=== PATIENT | female | born 1935 | race Two or more races ===

== ENCOUNTER → 2019-04-17 | Outpatient (CLI) | payer MEDICARE | END | disposition home or self-care (01) | LOC: LABWHC1 13:39 | PROVIDERS: ATTEND Ophthalmology | DX: H53.8 Other visual disturbances (principal) | CPT/HCPCS: 36415; 85652; 86140 ==

== ENCOUNTER 2021-01-28 12:09 | Observation (INO) | payer MEDICARE ==
[2021-01-28] MEDS ORDERED: SODIUM CHLORIDE 0.9% 1,000 ML IV ONE (12:30)
--- NOTE | 2021-01-28 12:30 | ED ---
General Adult HPI - General Chief complaint: Dizziness Stated complaint: vertigo Time Seen by Provider: 01/28/21 12:10 Source: patient, EMS, RN notes reviewed, old records reviewed Mode of arrival: ambulatory Limitations: no limitations - History of Present Illness Initial comments: This is a 85-year-old female who presents emergency Department complaining of the room spinning. Patient states she's had vertigo before but today was quite severe. Patient states started suddenly when she sat down the chair. Patient states anytime she tries to move she felt should've follow her so she was unable to ambulate. Patient states she went to [facility] where they admitted her to observation and for 23 hours but because she wasn't getting better they sent her to our facility so she could have a neurologic workup. Patient denies any headache patient denies any visual disturbance per patient denies any numbness weakness. Patient denies any near syncopal episode. Patient denies any chest pain or palpitations. Patient denies any shortness of breath per patient denies abdominal pain patient denies nausea vomiting diarrhea. - Related Data Home Medications Medication Instructions Recorded Confirmed Ascorbic Acid [Vitamin C] 500 mg PO DAILY 07/17/18 10/04/18 Aspirin [Adult Low Dose Aspirin EC] 81 mg PO DAILY 07/17/18 10/04/18 Cholecalciferol (Vitamin D3) 2,000 unit PO DAILY 07/17/18 10/04/18 [Vitamin D3] Fluconazole 200 mg PO SUTH 07/17/18 10/04/18 Furosemide [Lasix] 40 mg PO BID 07/17/18 10/04/18 Glucosamine/Chondr Thompson A Sod [Osteo 1 each PO DAILY 07/17/18 10/04/18 Bi-Flex Caplet] Losartan [Cozaar] 50 mg PO BID 07/17/18 10/04/18 Multivitamins, Thera [Multivitamin 1 tab PO DAILY 07/17/18 10/04/18 (formulary)] Pregabalin [Lyrica] 75 mg PO BID 07/17/18 10/04/18 Ubidecarenone [Co Q-10] 100 mg PO DAILY 07/17/18 10/04/18 Vitamin E Acetate [Vitamin E] 200 unit PO DAILY 07/17/18 10/04/18 glyBURIDE [Diabeta] 2.5 mg PO TID 07/17/18 10/04/18 metFORMIN HCL [Glucophage Xr] 500 mg PO TID 07/17/18 10/04/18 Allergies Allergy/AdvReac Type Severity Reaction Status Date / Time ciprofloxacin [From Cipro] Allergy Swelling Verified 01/28/21 12:23 Penicillins Allergy Anaphylaxis Verified 01/28/21 12:23 Review of Systems ROS Statement: Those systems with pertinent positive or pertinent negative responses have been documented in the HPI. ROS Other: All systems not noted in ROS Statement are negative. Past Medical History Past Medical History: Atrial Fibrillation, Diabetes Mellitus, Deep Vein Thrombosis (DVT), Hypertension, Renal Disease Additional Past Medical History / Comment(s): wound rt thigh area top of leg, wound on rt heel, dvt lt leg-1975, diabetic neuropathy. has cane and walker to use as needed History of Any Multi-Drug Resistant Organisms: None Reported Past Surgical History: Appendectomy, Cholecystectomy, Joint Replacement, Pacemaker Additional Past Surgical History / Comment(s): haseeb cataract surgery, cyst rt arm removed, rt knee replacement 11/15/17 Past Anesthesia/Blood Transfusion Reactions: Motion Sickness Type of Cardiac Device: Permanent Pacemaker Device Placement Date:: 06/10/18 Past Psychological History: No Psychological Hx Reported Smoking Status: Never smoker Past Alcohol Use History: None Reported Past Drug Use History: None Reported - Past Family History Brother(s) Family Medical History: Cancer, Coronary Artery Disease (CAD) Additional Family Medical History / Comment(s): 1-prostate, 1-colon cancer Father Family Medical History: Coronary Artery Disease (CAD) Mother Family Medical History: Coronary Artery Disease (CAD) General Exam - General Exam Comments Initial Comments: GENERAL: Patient is well-developed and well-nourished. Patient is nontoxic and well- hydrated and is in mild distress. ENT: Neck is soft and supple. No significant lymphadenopathy is noted. Oropharynx is clear. Moist mucous membranes. Neck has full range of motion without eliciting any pain. EYES: The sclera were anicteric and conjunctiva were pink and moist. Extraocular movements were intact and pupils were equal round and reactive to light. Eyelids were unremarkable. PULMONARY: Unlabored respirations. Good breath sounds bilaterally. No audible rales rhonchi or wheezing was noted. CARDIOVASCULAR: There is a regular rate and rhythm without any murmurs gallops or rubs. ABDOMEN: Soft and nontender with normal bowel sounds. SKIN: Skin is clear with no lesions or rashes and otherwise unremarkable. NEUROLOGIC: Patient is alert and oriented x3. Cranial nerves II through XII are grossly intact. Motor and sensory are also intact. Normal speech, volume and content. Symmetrical smile. Patient has vertical nystagmus particularly when looking to the left. MUSCULOSKELETAL: Normal extremities with adequate strength and full range of motion. No lower extremity swelling or edema. No calf tenderness. LYMPHATICS: No significant lymphadenopathy is noted PSYCHIATRIC: Normal psychiatric evaluation. Limitations: no limitations Course Vital Signs 01/28/21 12:12 Temperature 98.2 F Pulse Rate 70 Respiratory 18 Rate Blood Pressure 150/74 O2 Sat by Pulse 100 Oximetry Medical Decision Making - Medical Decision Making I spoke with some physicians Dr. Hoffmann accepted the admission. Disposition Clinical Impression: Vertigo, Vertical nystagmus Disposition: ADMITTED IP TO THIS HOSP Referrals: Vipul Saleh MD [Primary Care Provider] - 1-2 days Time of Disposition: 12:29
[2021-01-28] MEDS ORDERED: MECLIZINE 12.5 MG TAB PO PRN (12:34)
[2021-01-28 12:57] LABS: Basophils % (A) 0 %; Eosinophils # (A) 0.4 k/uL (0-0.7); Eosinophils % (A) 6 %; HCT 32.8 % (34.0-46.0); HGB 10.8 gm/dL (11.4-16.0); Lymphocytes # (A) 1.6 k/uL (1.0-4.8); Lymphocytes % (A) 27 %; MCH 31.2 pg (25.0-35.0); MCHC 32.8 g/dL (31.0-37.0); MCV 95.2 fL (80.0-100.0); Mean Platelet Volume 8.3; Monocytes # (A) 0.5 k/uL (0-1.0); Monocytes % (A) 8 %; Neutrophils # (A) 3.6 k/uL (1.3-7.7); Neutrophils % (A) 58 %; Platelet Count 128 k/uL (150-450); RBC 3.45 m/uL (3.80-5.40); RDW 14.4 % (11.5-15.5); WBC 6.1 k/uL (3.8-10.6)
[2021-01-28 13:06] LABS: Albumin 3.4 g/dL (3.5-5.0); Calcium 10.6 mg/dL (8.4-10.2); Potassium 4.7 mmol/L (3.5-5.1); Total Bilirubin 0.2 mg/dL (0.2-1.3); Total Protein 6.1 g/dL (6.3-8.2)
[2021-01-28] MEDS ORDERED: NALOXONE 0.4 MG/ML 1 ML VIAL IV PRN (15:50)
[2021-01-28] MEDS ORDERED: bisacodyL 5 MG TABLET.DR PO PRN (16:11)
[2021-01-28] MEDS ORDERED: MELATONIN 3 MG TABLET PO PRN (16:11)
[2021-01-28] MEDS ORDERED: ONDANSETRON 4 MG/2 ML VIAL IVP PRN (16:11)
--- NOTE | 2021-01-28 16:13 | P.HPIM ---
History of Present Illness H&P Date: 01/28/21 Chief Complaint: dizziness Patient is an 85-year-old female with a past medical history of vertigo diagnosed 1 year ago, carotid stenosis, diabetes mellitus type 2, A. fib, and multiple other comorbid conditions who presented to [facility] secondary to dizziness. Initial vital signs are within normal limits with a blood pressure 146/66. Initial laboratory analysis demonstrated hemoglobin of 9.6, chloride 111, glucose 179, BUN 35 and creatinine 1, BNP 948. Coated testing was negative. Head CT showed no acute process, x-ray showed no acute process. Patient seen and examined at bedside. Yesterday she though she had vertigo, and took an antivert and felt a little bit better, then still felt like the room was spinning. Was unable to stand due to dizziness. Today physician at [place] thought they saw nystagamous and transferred her to a hospital with neurology. Dizziness is much better today than yesterday. Was stiting in her chair when dizziness started. No presyncope NO chest/SOB, No speech difficulty, no change in streght, no numbness or tingling + runny nose for the last 2 weeks Pertinent positives and negatives as discussed in HPI, a complete review of systems was performed and all other systems are negative. General: non toxic, no distress, appears at stated age Derm: warm, dry, dressing in place over bilateral thighs Head: atraumatic, normocephalic, symmetric Eyes: EOMI, no lid lag, anicteric sclera, pupils equal round reactive to light ENT: Nose and ears atraumatic, no thrush, no pharyngeal erythema Neck: No thyromegaly, no cervical lymphadenopathy, trachea midline, supple Mouth: no lip lesion, mucus membranes moist Cardiovascular: S1S2 irreg, no murmur, positive posterior tibial pulse bilateral, 2+ edema, capillary refill less than 2 seconds Lungs: clear to ascultation bilateral, no ronchi, no rales, no wheeze, no acce ssory muscle use Abdominal: soft, nontender to palpation, no guarding, no appreciable organomegaly, normal bowel sounds Ext: no gross muscle atrophy, muscle strength muscle strength 3-5 out of 5 in all 4 extremities, no contractures Neuro: CN II-XI grossly intact, light touch intact all 4 extremities, finger to nose within normal limits, + Marli hallpike Psych: Alert, oriented, appropriate affect Dizziness -Positive Marli-Hallpike on the left -Unable to have MRI secondary to pacemaker -Await neurology recommendations -Check echocardiogram, carotid Dopplers -PT/OT evaluation -Telemetry -Check orthostatic vitals Cardiac murmur -Unknown to patient -Check echocardiogram Bilateral thigh wounds -Consult wound. Diabetes mellitus type 2 - hold oral medications - SSI Atrial fibrillation -Anticoagulated with Eliquis -Telemetry -Resume Coreg Debility -walker, fall precautions The patient is placed in observation with an anticipated less than 2 midnight stay for evaluation of dizziness. CODE STATUS:DNR DVT prophylaxis: Eliquis Discussed with: patient, nursing Anticipated discharge date: in AM Anticipated discharge place: home A total of 65 minutes was spent on the care of this complex patient more than 50% of the time was spent in counseling and care coordination. Past Medical History Past Medical History: Atrial Fibrillation, Diabetes Mellitus, Deep Vein Thrombosis (DVT), Renal Disease Additional Past Medical History / Comment(s): wound rt thigh area top of leg, wound on rt heel, dvt lt leg-1975, diabetic neuropathy History of Any Multi-Drug Resistant Organisms: None Reported Past Surgical History: Appendectomy, Cholecystectomy, Joint Replacement, Pacemaker Additional Past Surgical History / Comment(s): haseeb cataract surgery, cyst rt arm removed, rt knee replacement 11/15/17 Past Anesthesia/Blood Transfusion Reactions: Motion Sickness Type of Cardiac Device: Permanent Pacemaker Device Placement Date:: 06/10/18 Past Psychological History: No Psychological Hx Reported Smoking Status: Never smoker Past Alcohol Use History: None Reported Past Drug Use History: None Reported Additional History: walker - Past Family History Brother(s) Family Medical History: Cancer, Coronary Artery Disease (CAD) Additional Family Medical History / Comment(s): 1-prostate, 1-colon cancer Father Family Medical History: Coronary Artery Disease (CAD) Mother Family Medical History: Coronary Artery Disease (CAD) Medications and Allergies Home Medications Medication Instructions Recorded Confirmed Type Ascorbic Acid [Vitamin C] 500 mg PO DAILY 07/17/18 01/28/21 History Glucosamine/Chondr Thompson A Sod [Osteo 1 tab PO DAILY 07/17/18 01/28/21 History Bi-Flex Caplet] Ubidecarenone [Co Q-10] 100 mg PO DAILY 07/17/18 01/28/21 History Vitamin E Acetate [Vitamin E] 200 unit PO DAILY 07/17/18 01/28/21 History Allopurinol [Zyloprim] 100 mg PO BID 01/28/21 01/28/21 History Apixaban [Eliquis] 2.5 mg PO BID 01/28/21 01/28/21 History Bumetanide [Bumex] 1 mg PO DAILY 01/28/21 01/28/21 History Levothyroxine Sodium [Synthroid] 112 mcg PO DAILY 01/28/21 01/28/21 History Losartan Potassium [Cozaar] 25 mg PO DAILY 01/28/21 01/28/21 History Magnesium Oxide [Magox 400] 400 mg PO DAILY 01/28/21 01/28/21 History Nystatin 100,000 Unit/gm Oint 1 applic TOPICAL BID 01/28/21 01/28/21 History [Mycostatin Oint] carvediloL [Carvedilol] 12.5 mg PO BID 01/28/21 01/28/21 History glipiZIDE [Glucotrol] 5 mg PO AC-BRKFST 01/28/21 01/28/21 History Allergies Allergy/AdvReac Type Severity Reaction Status Date / Time ciprofloxacin [From Cipro] Allergy Swelling Verified 01/28/21 13:15 Penicillins Allergy Anaphylaxis Verified 01/28/21 13:15 Iodine and Iodide Containing AdvReac kidney Verified 01/28/21 13:15 Produc issues Physical Exam Osteopathic Statement: *. No significant issues noted on an osteopathic structural exam other than those noted in the History and Physical/Consult. Vitals: Vital Signs Temp Pulse Resp BP Pulse Ox 01/28/21 15:33 70 18 131/48 99 01/28/21 14:00 70 18 145/64 99 01/28/21 13:45 70 18 145/64 98 01/28/21 13:00 70 18 143/61 100 01/28/21 12:12 98.2 F 70 18 150/74 100 Intake and Output 01/28/21 01/28/21 01/28/21 06:59 14:59 22:59 Other: Weight 83.915 kg Results CBC & Chem 7: 01/28/21 12:30 01/28/21 12:30 Labs: Abnormal Lab Results - Last 24 Hours (Table) 01/28/21 01/28/21 Range/Units 12:30 12:30 RBC 3.45 L (3.80-5.40) m/uL Hgb 10.8 L (11.4-16.0) gm/dL Hct 32.8 L (34.0-46.0) % Plt Count 128 L (150-450) k/uL Chloride 112 H (98-107) mmol/L BUN 30 H (7-17) mg/dL Glucose 131 H (74-99) mg/dL Calcium 10.6 H (8.4-10.2) mg/dL Total Protein 6.1 L (6.3-8.2) g/dL Albumin 3.4 L (3.5-5.0) g/dL
--- NOTE | 2021-01-28 16:36 | P.CNNES ---
History of Present Illness Consult date: 01/28/21 Requesting physician: Gerardo Dyson Chief complaint: Vertigo, nystagmus History of Present Illness: Patient is a 85-year-old female came to the hospital today at 12:09 PM by ambulance for evaluation of vertigo. Patient states that she had one episode of vertigo previously in April 2020 that lasted for about 20 hours and then went away. She never had any issues until yesterday morning at around 7 AM, when she was sitting in the chair, ready to watch good morning [place], very comfortable. She tried to get up to fix the breakfast, when all of a sudden everything started spinning around. She could not even stand. She had one of her friend came over, gave her meclizine from the cabinet which he took did not help. Her friend called the ambulance and it took 2 men to pick her up and hold onto the stretcher. Her eyes kept on spinning. She couldn't make a step. She was taken to [facility]. Her blood test performed at [facility] shows negative influenza screen, negative SARS-Cov-2 PCR. UA is negative. CBC is normal with WBC 5.53, hemoglobin 9.6, platelets 115. PT/PTT normal. Lipase normal. Magnesium 1.6. Electrolytes normal, BUN 35, creatinine 1 which is normal. Calcium 10.2 borderline. Hepatic panel normal. CPK 27 troponin negative. Patient was given meclizine, Reglan 10 mg IV Tylenol. EKG shows ventricular paced complexes. Computed tomography scan of head is normal. Shows some atrophy. Paranasal sinuses and external auditory canals clear. Chest x-ray showed no active cardiopulmonary disease, normal heart. Apparently Abdulaziz maneuver was attempted in [facility], which did not help. Patient was therefore transferred to [facility] today for n eurological evaluation. Patient has not seen an ENT specialist. Patient states that the symptoms lasted all day yesterday. Today it is improved, but not totally cleared. At present the room is not spinning, but her eyes not functioning right. Patient has history of type 2 diabetes for last 40 years, right total knee replacement, atrial fibrillation, hypertension, hyperlipidemia, CHF, vertigo. Patient also has a pacemaker. Patient has history of peripheral neuropathy in the feet for last 35 years. She has history of atrial fibrillation on 07/23/2019 for which she is on anticoagulation. Patient states that she received the second shot of the ansari virus vaccination in the right shoulder in August 2020 and after that she developed weakness of the right shoulder. Review of Systems Patient denies any slurred speech, facial droop, slurred speech. She denies any focal numbness tingling or weakness. No chest pain, abdominal pain nausea vomiting diarrhea. Patient does complain of some double vision. No fever or chills. No rash. She has arthritis. No anxiety depression. Past Medical History Past Medical History: Atrial Fibrillation, Diabetes Mellitus, Deep Vein Thrombosis (DVT), Hypertension, Renal Disease Additional Past Medical History / Comment(s): wound rt thigh area top of leg, wound on rt heel, dvt lt leg-1974, diabetic neuropathy. has cane and walker to use as needed History of Any Multi-Drug Resistant Organisms: None Reported Past Surgical History: Appendectomy, Cholecystectomy, Joint Replacement, Pacemaker Additional Past Surgical History / Comment(s): haseeb cataract surgery, cyst rt arm removed, rt knee replacement 11/15/17 Past Anesthesia/Blood Transfusion Reactions: Motion Sickness Type of Cardiac Device: Permanent Pacemaker Device Placement Date:: 06/10/18 Past Psychological History: No Psychological Hx Reported Smoking Status: Never smoker Past Alcohol Use History: None Reported Past Drug Use History: None Reported - Past Family History Brother(s) Family Medical History: Cancer, Coronary Artery Disease (CAD) Additional Family Medical History / Comment(s): 1-prostate, 1-colon cancer Father Family Medical History: Coronary Artery Disease (CAD) Mother Family Medical History: Coronary Artery Disease (CAD) Medications and Allergies Home Medications Medication Instructions Recorded Confirmed Type Ascorbic Acid [Vitamin C] 500 mg PO DAILY 07/17/18 01/28/21 History Glucosamine/Chondr Thompson A Sod [Osteo 1 tab PO DAILY 07/17/18 01/28/21 History Bi-Flex Caplet] Ubidecarenone [Co Q-10] 100 mg PO DAILY 07/17/18 01/28/21 History Vitamin E Acetate [Vitamin E] 200 unit PO DAILY 07/17/18 01/28/21 History Allopurinol [Zyloprim] 100 mg PO BID 01/28/21 01/28/21 History Apixaban [Eliquis] 2.5 mg PO BID 01/28/21 01/28/21 History Bumetanide [Bumex] 1 mg PO DAILY 01/28/21 01/28/21 History Levothyroxine Sodium [Synthroid] 112 mcg PO DAILY 01/28/21 01/28/21 History Losartan Potassium [Cozaar] 25 mg PO DAILY 01/28/21 01/28/21 History Magnesium Oxide [Magox 400] 400 mg PO DAILY 01/28/21 01/28/21 History Nystatin 100,000 Unit/gm Oint 1 applic TOPICAL BID 01/28/21 01/28/21 History [Mycostatin Oint] carvediloL [Carvedilol] 12.5 mg PO BID 01/28/21 01/28/21 History glipiZIDE [Glucotrol] 5 mg PO AC-BRKFST 01/28/21 01/28/21 History Allergies Allergy/AdvReac Type Severity Reaction Status Date / Time ciprofloxacin [From Cipro] Allergy Swelling Verified 01/28/21 13:15 Penicillins Allergy Anaphylaxis Verified 01/28/21 13:15 Iodine and Iodide Containing AdvReac kidney Verified 01/28/21 13:15 Produc issues Physical Examination - Vital Signs Vital Signs: Vital Signs Temp Pulse Resp BP Pulse Ox 01/28/21 14:00 70 18 145/64 99 01/28/21 13:45 70 18 145/64 98 01/28/21 13:00 70 18 143/61 100 01/28/21 12:12 98.2 F 70 18 150/74 100 Intake and Output 01/27/21 01/28/21 01/28/21 22:59 06:59 14:59 Other: Weight 83.915 kg Patient is an elderly female, very pleasant, in no acute distress. Patient is alert awake oriented to time, place and person. Speech and language functions are normal. No aphasia or dysarthria. Attention, concentration and fund of knowledge is adequate. On cranial nerve examination, pupils are equal, round 3 mm and reacting to light to 2 mm, visual eckert are full on confrontation, extraocular muscles are intact, although appears to have diplopia looking to the right, questionable mild left DOE. Patient has very significant downbeat nystagmus looking at end gaze bilaterally, right worse than left and also slightly in the primary gaze. Face is symmetric, tongue protrudes to the midline. Palatal elevation and sensation normal, hearing is slightly decreased and shoulder shrug normal, facial sensation normal. Otologic examination revealed moderate amount of wax in the right ear. On muscle strength testing, patient has bilateral deltoid weakness (right/left), deltoid 2/3, biceps 4+/5 triceps and systems protection technician are normal. In the lower extremities hip flexion 2-3/2-3, ankles are normal. Deep tendon reflexes are symmetric, trace in the upper limbs, 0 at the right knee, 1+ left. Ankles are 0 and plantars downgoing. Sensory to touch is equal with no neglect. Cerebellar function showed no ataxia for [id number] testing. No dysdiadochokinesia. Tone and bulk of muscles normal. Gait not checked. On general examination, there is no carotid bruit or murmur, S1-S2 audible. Abdomen is soft nontender. Chest is clear. Peripheral pulses are present. Mild peripheral edema. Results - Laboratory Findings CBC and BMP: 01/28/21 12:30 01/28/21 12:30 Abnormal Lab Findings: Abnormal Labs 01/28/21 01/28/21 12:30 12:30 RBC 3.45 L Hgb 10.8 L Hct 32.8 L Plt Count 128 L Chloride 112 H BUN 30 H Glucose 131 H Calcium 10.6 H Total Protein 6.1 L Albumin 3.4 L Assessment and Plan Assessment: * Vertigo with nystagmus. Rule out central versus peripheral cause. Rule out vestibular neuronitis/labyrinthitis. TIA/CVA appears less likely with lack of any other focal symptoms although still in the differential. * Atrial fibrillation, on long-term anticoagulation. * Pacemaker * Diabetes, well controlled * Hypertension * Obesity Plan: * Patient will undergo carotid Doppler rule out stenosis. * We will check B12, folate. * Suggest ENT consultation to evaluate for vertigo and vertical nystagmus. Rule out central versus peripheral cause. Patient may need electronystagmogram/VNG. * Continue Eliquis 2.5 mg twice a day. * 2-D echo. * Patient cannot have MRI due to presence of pacemaker. * We will follow.
--- NOTE | 2021-01-28 16:50 | US ---
EXAMINATION TYPE: US carotid duplex BILAT DATE OF EXAM: 01/28/2021 COMPARISON: NONE CLINICAL HISTORY: Vertigo. vertigo EXAM MEASUREMENTS: RIGHT: Peak Systolic Velocity (PSV) cm/sec ----- Right CCA: 75.7 ----- Right ICA: 97.7 ----- Right ECA: 66.2 ICA/CCA ratio: 1.3 RIGHT: End Diastole cm/sec ----- Right CCA: 10.9 ----- Right ICA: 25.2 ----- Right ECA: 0.0 LEFT: Peak Systolic Velocity (PSV) cm/sec ----- Left CCA: 69.1 ----- Left ICA: 88.9 ----- Left ECA: 55.7 ICA/CCA ratio: 1.3 LEFT: End Diastole cm/sec ----- Left CCA: 9.8 ----- Left ICA: 24.1 ----- Left ECA: 0.0 VERTEBRALS (direction of flow): Right Vertebral: Antegrade Left Vertebral: Antegrade Rhythm: Normal Mild to moderate plaque bilateral bifurcations. no evidence of increased velocities. IMPRESSION: There is antegrade flow in the vertebral arteries. The images and measurements suggest 50% stenosis i n both internal carotid arteries. NASCET criteria was used in interpretation of this exam? Criteria for Assigning % of Stenosis / Diameter reduction (Estimation based on the indirect measurements of the internal carotid artery velocities (ICA PSV). 1. Normal (no stenosis)=ICA PSV < 125 cm/s: ratio < 2.0: ICA EDV<40 cm/s. 2. Less than 50% stenosis=ICA PSV < 125 cm/s: ratio < 2.0: ICA EDV<40 cm/s. 3. 50 to 69% stenosis=ICA PSV of 125 to 230 cm/s: ration 2.0 ? 4.0: ICA EDV 40-100 cm/s. 4. Greater than 70% stenosis to near occlusion= ICA PSV > 230 cm/s: ratio > 4.0: ICA EDV > 100 cm/s. 5. Near occlusion= ICA PSV velocities may be low or undetectable: variable ratio and ICA EDV. 6. Total occlusion=unable to detect flow.
[2021-01-28 17:30] LABS: Glucose,Whole Blood 212 mg/dL (75-99)
[2021-01-28] MEDS: carvediloL 12.5 MG TAB PO SCH (17:33)
[2021-01-28] MEDS: INSULIN ASPART (NovoLOG) 100 UNIT/ML VIAL SQ SCH ×2 (17:33→21:45)
[2021-01-28 20:42] LABS: Glucose,Whole Blood 225 mg/dL (75-99)
[2021-01-28] MEDS: APIXABAN 2.5 MG TABLET PO SCH (21:45)
[2021-01-28] MEDS: allopurinoL 100 MG TAB PO SCH (21:45)
[2021-01-28] MEDS: ACETAMINOPHEN TAB 325 MG TAB PO PRN (23:50)
[2021-01-29 01:55] VITALS: PULSE 70
[2021-01-29] MEDS: LEVOTHYROXINE 112 MCG TAB PO SCH (05:36)
[2021-01-29 07:17] LABS: Glucose,Whole Blood 140 mg/dL (75-99)
[2021-01-29] MEDS ORDERED: NON FORMULARY DRUG (Glucosamine/Chondr Su A Sod [Osteo Bi-Flex Caplet] 1 EACH Tablet) PO SCH (09:00)
[2021-01-29 09:10] LABS: HGB 9.2 g/dL (12.0-15.0); MCH 30.8 pg (27.0-32.0); MCHC 31.7 g/dL (32.0-37.0); Mean Platelet Volume 10.9 fL (9.5-12.2); Platelet Count 125 X 10*3/uL (140-440); RBC 2.99 X 10*6/uL (4.10-5.20); RDW 14.5 % (11.5-14.5); WBC 5.75 X 10*3/uL (4.50-10.00)
[2021-01-29] MEDS: MAGNESIUM OXIDE 400 MG TAB PO SCH (09:16)
[2021-01-29] MEDS: LOSARTAN 25 MG TAB PO SCH (09:16)
[2021-01-29] MEDS: allopurinoL 100 MG TAB PO SCH ×2 (09:16→20:34)
[2021-01-29] MEDS: INSULIN ASPART (NovoLOG) 100 UNIT/ML VIAL SQ SCH ×4 (09:16→20:32)
[2021-01-29] MEDS: APIXABAN 2.5 MG TABLET PO SCH ×2 (09:16→20:34)
[2021-01-29] MEDS: carvediloL 12.5 MG TAB PO SCH ×2 (09:17→18:01)
[2021-01-29] MEDS: BUMETANIDE 1 MG TAB PO SCH (09:17)
[2021-01-29] MEDS: ASCORBIC ACID 500 MG TAB PO SCH (09:17)
[2021-01-29] MEDS: ACETAMINOPHEN TAB 325 MG TAB PO PRN ×2 (09:30→20:32)
--- NOTE | 2021-01-29 11:01 | ECHOF ---
Referral Reason:murmur MEASUREMENTS -------- HEIGHT: 152.4 cm WEIGHT: 83.9 kg BP: 121/79 RVIDd: 4.2 cm (< 3.3) IVSd: 1.4 cm (0.6 - 1.1) LVIDd: 3.5 cm (3.9 - 5.3) LVPWd: 1.4 cm (0.6 - 1.1) IVSs: 1.7 cm LVIDs: 2.2 cm LVPWs: 1.6 cm LAESV Index (A-L): 52.70 ml/m Ao Diam: 2.9 cm (2.0 - 3.7) AV Cusp: 1.2 cm (1.5 - 2.6) LA Diam: 5.4 cm (2.7 - 3.8) MV E Clifford: 0.94 m/s MV DecT: 72 ms MV A Clifford: 1.05 m/s MV E/A Ratio: 0.90 AV maxP.15 mmHg AV meanP.27 mmHg RAP: 5.00 mmHg RVSP: 28.28 mmHg FINDINGS -------- Sinus rhythm. This was a technically adequate study. The left ventricular size is normal. There is moderate concentric left ventricular hypertrophy. O verall left ventricular systolic function is mildly impaired with, an EF between 45 - 50 %. Septal wall motion is delayed, and consistent with ventricular pacing. The right ventricle is moderately enlarged. LA is severely dilated >40 ml/m2 The right atrial size is normal. Electronic pacemaker lead seen in the right atrial cavity. Interatrial and interventricular septum intact. There is no evidence of aortic regurgitation. There is moderate aortic stenosis present. Peak/nida n gradient across the Aortic Valve is 45.15mmHg / 24.27mmHg. Nqvrbuci-[id number] mitral regurgitation is present. Mild tricuspid regurgitation present. The right ventricular systolic pressure, as measured by Doppl er, is 28.28mmHg. Unable to estimate RVSP due to inadequate TR jet spectral doppler profile. There is no pulmonic regurgitation present. The aortic root size is normal. Normal inferior vena cava with normal inspiratory collapse consistent with estimated right atrial pre ssure of 5 mmHg. There is no pericardial effusion. CONCLUSIONS -------- 1. The left ventricular size is normal. 2. There is moderate concentric left ventricular hypertrophy. 3. Overall left ventricular systolic function is mildly impaired with, an EF between 45 - 50 %. 4. Septal wall motion is delayed, and consistent with ventricular pacing. 5. The right ventricle is moderately enlarged. 6. LA is severely dilated >40 ml/m2 7. There is moderate aortic stenosis present. 8. Peak/mean gradient across the Aortic Valve is 45.15mmHg / 24.27mmHg. 9. Ocwcmtpp-gm-[id number] mitral regurgitation is present. 10. Mild tricuspid regurgitation present. PRODUCT RESPONSIBILITY LIAISON: Annie Gutiérrez RDCS
[2021-01-29 11:34] LABS: Glucose,Whole Blood 149 mg/dL (75-99)
--- NOTE | 2021-01-29 12:03 | P.PN ---
Subjective Progress Note Date: 01/29/21 Patient states she is feeling better. She is not as dizzy. She feels almost back to normal". She has been walking with her walker and fell steady. Patient always uses 4 wheeled walker at home inside and outside. Denies headache. Still has double vision at times. No nausea vomiting. No new focal symptoms. Objective - Vital Signs Vital signs: Vital Signs Temp 97.6 F 01/29/21 07:00 Pulse 70 01/29/21 08:00 Resp 16 01/29/21 08:00 BP 149/80 01/29/21 07:00 Pulse Ox 97 01/29/21 07:00 Intake & Output 01/28/21 01/29/21 01/29/21 18:59 06:59 18:59 Weight 83.915 kg 83.915 kg Other: Voiding Method Bedside Commode Bedside Commode # Voids 2 # Bowel Movements 1 - Exam Patient's mental status, speech and language functions are normal. Pupils are r ound and reactive to light visual eckert are full. Extraocular muscles revealed vertical nystagmus, but much better than yesterday. She was still seeing double in the primary gaze. No ataxia for oxtyrs-pi-tayx testing. Face is symmetric. Tongue protrudes the midline. Muscle strength is normal. - Labs CBC & Chem 7: 01/29/21 04:47 01/29/21 04:47 Labs: Abnormal Lab Results - Last 24 Hours (Table) 01/28/21 01/28/21 01/28/21 Range/Units 12:30 12:30 17:28 RBC 3.45 L (3.80-5.40) m/uL Hgb 10.8 L (11.4-16.0) gm/dL Hct 32.8 L (34.0-46.0) % MCHC (32.0-37.0) g/dL Plt Count 128 L (150-450) k/uL Chloride 112 H (98-107) mmol/L BUN 30 H (7-17) mg/dL Glucose 131 H (74-99) mg/dL POC Glucose (mg/dL) 212 H (75-99) mg/dL Calcium 10.6 H (8.4-10.2) mg/dL Total Protein 6.1 L (6.3-8.2) g/dL Albumin 3.4 L (3.5-5.0) g/dL 01/28/21 01/29/21 01/29/21 Range/Units 20:41 04:47 07:16 RBC 2.99 L (3.80-5.40) m/uL Hgb 9.2 L (11.4-16.0) gm/dL Hct 29.0 L (34.0-46.0) % MCHC 31.7 L (32.0-37.0) g/dL Plt Count 125 L (150-450) k/uL Chloride (98-107) mmol/L BUN (7-17) mg/dL Glucose (74-99) mg/dL POC Glucose (mg/dL) 225 H 140 H (75-99) mg/dL Calcium (8.4-10.2) mg/dL Total Protein (6.3-8.2) g/dL Albumin (3.5-5.0) g/dL 01/29/21 Range/Units 11:34 RBC (3.80-5.40) m/uL Hgb (11.4-16.0) gm/dL Hct (34.0-46.0) % MCHC (32.0-37.0) g/dL Plt Count (150-450) k/uL Chloride (98-107) mmol/L BUN (7-17) mg/dL Glucose (74-99) mg/dL POC Glucose (mg/dL) 149 H (75-99) mg/dL Calcium (8.4-10.2) mg/dL Total Protein (6.3-8.2) g/dL Albumin (3.5-5.0) g/dL Assessment and Plan Assessment: * Vertigo with nystagmus. Some diplopia. Rule out central versus peripheral cause. Rule out vestibular neuronitis/labyrinthitis. TIA/CVA also in the differential due to vertical nystagmus and diplopia. Patient is already on Eliquis. * Atrial fibrillation, on long-term anticoagulation. * Pacemaker * Diabetes, well controlled * Hypertension * Obesity Plan: * Carotid Doppler showed 50% stenosis bilateral ICA. Antegrade flow in both vertebral arteries. We will start Lipitor 10 mg daily. * B12 1781, folate 23.4. Hemoglobin A1c 6.3. * Patient's lipid panel from 10/24/2019 shows cholesterol 164, LDL 97, HDL 42 and triglycerides 122. We will start low-dose Lipitor to bring LDL less than 70. Hemoglobin A1c 6.3 on 10/24/2019. * Suggest ENT consultation to evaluate for vertigo and vertical nystagmus. Rule out central versus peripheral cause. Patient may need electronystagmogram/VNG. * Continue Eliquis 2.5 mg twice a day. * 2-D echo revealed normal left-ventricular size. Moderate concentric LVH. Left ventricular systolic function is mildly impaired with EF between 45-50%. Septal wall motion is delayed and is consistent with ventricular pacing. Left atrium is severely dilated. Moderate aortic stenosis. Moderate to severe MR. Patient follows up with hospital cook. * Patient cannot have MRI due to presence of pacemaker.
--- NOTE | 2021-01-29 12:35 | P.CONS ---
History of Present Illness - Reason for Consult Consult date: 01/29/21 wound care - History of Present Illness 85-year-old patient who is known to the wound care center however she is following up at the [place] wound care center for nonhealing ulceration to the left lower extremity posterior aspect and a new ulcerations to the left axilla. Patient has been utilizing absorptive silver foam to the site. She has been receiving wound care for the last few weeks. The ulceration however seems to be worsening instead of getting better. Patient continues to have significant amount of drainage. Patient continues to sit for prolonged periods time and an causes shearing when transferring. Right lower extremity posterior aspect ulceration measures approximately 8 x 8 x 0.1 cm a significant amount of drainage and slough noted with granulation seen throughout the wound bed wound edges are attached to the wound base no tunneling under not minding noted. The left axilla ulceration measures approximately 2 x 3 x 0.1 cm with slough noted within the wound bed and granulation seen throughout. Patient's past medical history significant for atrial fibrillation, diabetes mellitus, hypertension, diabetic neuropathy. Review Of Systems: Constitutional: No fever, no chills, no night sweats. No weight change. No weakness, fatigue or lethargy. No daytime sleepiness. Integumentary:reports wounds, no lesions. No rash or pruritus. No unusual bruising. No change in hair or nails. Physical exam: General Appearance: Alert, cooperative, no distress, appears stated age. Skin: See HPI all other Skin color, texture, tugor normal, no rashes or lesions. Neurologic: Alert oriented x3 Assessment: 1. Nonhealing ulceration to right lower extremity with fat layer exposure 2. Nonhealing ulceration to left axilla with fat layer exposure 3. Diabetic foot ulcer Plan: 1. Right lower extremity: Apply absorptive silver, saline moistened gauze, and ABD and secure with Tubigrip. Change every other day. 2. Left axilla ulceration apply honey alginate, saline moist gauze, dry gauze, Tegaderm changes every other day. Thank you for the consultation any questions please contact the wound care center DNP note has been reviewed and discussed with Dr. Guillen and the impression and plan of care has been directed as dictated. Past Medical History Past Medical History: Atrial Fibrillation, Diabetes Mellitus, Deep Vein Thrombosis (DVT), Hypertension, Renal Disease Additional Past Medical History / Comment(s): wound rt thigh area top of leg, wound on rt heel, dvt lt leg-1975, diabetic neuropathy History of Any Multi-Drug Resistant Organisms: None Reported Past Surgical History: Appendectomy, Cholecystectomy, Joint Replacement, Pacemaker Additional Past Surgical History / Comment(s): haseeb cataract surgery, cyst rt arm removed, rt knee replacement 11/15/17 Past Anesthesia/Blood Transfusion Reactions: Previous Problems w/ Anesthesia Additional Past Anesthesia/Blood Transfusion Reaction / Comm: Pt states it takes a long time for her to come to after anesthesia. Type of Cardiac Device: Permanent Pacemaker Device Placement Date:: 06/10/18 Past Psychological History: No Psychological Hx Reported Smoking Status: Former smoker Past Alcohol Use History: None Reported Past Drug Use History: None Reported - Past Family History Brother(s) Family Medical History: Cancer, Coronary Artery Disease (CAD) Additional Family Medical History / Comment(s): 1-prostate, 1-colon cancer Father Family Medical History: Coronary Artery Disease (CAD) Mother Family Medical History: Coronary Artery Disease (CAD) Medications and Allergies Home Medications Medication Instructions Recorded Confirmed Type Ascorbic Acid [Vitamin C] 500 mg PO DAILY 07/17/18 01/28/21 History Glucosamine/Chondr Thompson A Sod [Osteo 1 tab PO DAILY 07/17/18 01/28/21 History Bi-Flex Caplet] Ubidecarenone [Co Q-10] 100 mg PO DAILY 07/17/18 01/28/21 History Vitamin E Acetate [Vitamin E] 200 unit PO DAILY 07/17/18 01/28/21 History Allopurinol [Zyloprim] 100 mg PO BID 01/28/21 01/28/21 History Apixaban [Eliquis] 2.5 mg PO BID 01/28/21 01/28/21 History Bumetanide [Bumex] 1 mg PO DAILY 01/28/21 01/28/21 History Levothyroxine Sodium [Synthroid] 112 mcg PO DAILY 01/28/21 01/28/21 History Losartan Potassium [Cozaar] 25 mg PO DAILY 01/28/21 01/28/21 History Magnesium Oxide [Magox 400] 400 mg PO DAILY 01/28/21 01/28/21 History Nystatin 100,000 Unit/gm Oint 1 applic TOPICAL BID 01/28/21 01/28/21 History [Mycostatin Oint] carvediloL [Carvedilol] 12.5 mg PO BID 01/28/21 01/28/21 History glipiZIDE [Glucotrol] 5 mg PO AC-BRKFST 01/28/21 01/28/21 History Allergies Allergy/AdvReac Type Severity Reaction Status Date / Time ciprofloxacin [From Cipro] Allergy Swelling Verified 01/28/21 13:15 Penicillins Allergy Anaphylaxis Verified 01/28/21 13:15 Iodine and Iodide Containing AdvReac kidney Verified 01/28/21 13:15 Produc issues Physical Exam Vitals: Vital Signs Temp Pulse Pulse Resp BP BP Pulse Ox 01/29/21 08:00 70 16 01/29/21 07:00 97.6 F 70 16 149/80 97 01/29/21 01:54 70 17 01/29/21 01:30 97.2 F L 70 17 121/79 97 01/28/21 22:40 71 01/28/21 20:40 98.0 F 71 17 143/81 98 01/28/21 19:55 97.5 F L 70 18 156/63 100 01/28/21 17:29 70 18 139/50 98 01/28/21 15:33 70 18 131/48 99 01/28/21 14:00 70 18 145/64 99 01/28/21 13:45 70 18 145/64 98 01/28/21 13:00 70 18 143/61 100 Intake and Output 01/28/21 01/29/21 01/29/21 22:59 06:59 14:59 Other: Voiding Method Bedside Commode Bedside Commode Bedside Commode # Voids 1 2 # Bowel Movements 1 Weight 83.915 kg Results CBC & Chem 7: 01/29/21 04:47 01/28/21 12:30 Labs: Abnormal Lab Results - Last 24 Hours (Table) 01/28/21 01/28/21 01/28/21 Range/Units 12:30 12:30 17:28 RBC 3.45 L (3.80-5.40) m/uL Hgb 10.8 L (11.4-16.0) gm/dL Hct 32.8 L (34.0-46.0) % MCHC (32.0-37.0) g/dL Plt Count 128 L (150-450) k/uL Chloride 112 H (98-107) mmol/L BUN 30 H (7-17) mg/dL Glucose 131 H (74-99) mg/dL POC Glucose (mg/dL) 212 H (75-99) mg/dL Calcium 10.6 H (8.4-10.2) mg/dL Total Protein 6.1 L (6.3-8.2) g/dL Albumin 3.4 L (3.5-5.0) g/dL 01/28/21 01/29/21 01/29/21 Range/Units 20:41 04:47 07:16 RBC 2.99 L (3.80-5.40) m/uL Hgb 9.2 L (11.4-16.0) gm/dL Hct 29.0 L (34.0-46.0) % MCHC 31.7 L (32.0-37.0) g/dL Plt Count 125 L (150-450) k/uL Chloride (98-107) mmol/L BUN (7-17) mg/dL Glucose (74-99) mg/dL POC Glucose (mg/dL) 225 H 140 H (75-99) mg/dL Calcium (8.4-10.2) mg/dL Total Protein (6.3-8.2) g/dL Albumin (3.5-5.0) g/dL 01/29/21 Range/Units 11:34 RBC (3.80-5.40) m/uL Hgb (11.4-16.0) gm/dL Hct (34.0-46.0) % MCHC (32.0-37.0) g/dL Plt Count (150-450) k/uL Chloride (98-107) mmol/L BUN (7-17) mg/dL Glucose (74-99) mg/dL POC Glucose (mg/dL) 149 H (75-99) mg/dL Calcium (8.4-10.2) mg/dL Total Protein (6.3-8.2) g/dL Albumin (3.5-5.0) g/dL Assessment and Plan (1) Non-pressure chronic ulcer of skin of other sites with fat layer exposed Current Visit: Yes Status: Acute Code(s): L98.492 - NON-PRS CHRONIC ULCER OF SKIN OF SITES W FAT LAYER EXPOSED SNOMED Code(s): 37597141 (2) Diabetes with skin ulcer Current Visit: Yes Status: Acute Code(s): E11.622 - TYPE 2 DIABETES MELLITUS WITH OTHER SKIN ULCER; L98.499 - NON-PRESSURE CHRONIC ULCER OF SKIN OF SITES W UNSP SEVERITY SNOMED Code(s): 09835140 (3) Chronic ulcer of right thigh with fat layer exposed Current Visit: No Status: Acute Code(s): L97.112 - NON-PRS CHRONIC ULCER OF RIGHT THIGH W FAT LAYER EXPOSED SNOMED Code(s): 966600799
--- NOTE | 2021-01-29 16:22 | P.PN ---
Subjective Progress Note Date: 01/29/21 Patient is an 85-year-old female with a past medical history of vertigo diagnosed 1 year ago, carotid stenosis, diabetes mellitus type 2, A. fib, and multiple other comorbid conditions who presented to [facility] secondary to dizziness. Initial vital signs are within normal limits with a blood pressure 146/66. Initial laboratory analysis demonstrated hemoglobin of 9.6, chloride 111, glucose 179, BUN 35 and creatinine 1, BNP 948. COVID testing was negative. Head CT showed no acute process, x-ray showed no acute process. Echo demonistrated ejection fraction 45-50%, moderate aortic stenosis, and moderate to severe mitral regurgitation. Carotid Doppler showed 50% plaquing bilaterally. She went to get up with therapy and her dizziness is better but she was significantly weak and they recommended rehab. She was seen by wound care due to her bilateral thigh wounds they also identified a left axillary wound. Patient seen and examined at bedside. She states that her dizziness is resolved but she is still feeling weak and that physical therapy said she cannot go home. No chest pain, SOB, or nausea. General: non toxic, no distress, appears at stated age Derm: Bilateral thigh wounds with dressing in place, warm, dry Head: atraumatic, normocephalic, symmetric Eyes: EOMI, no lid lag, anicteric sclera Mouth: no lip lesion, mucus membranes moist Cardiovascular: S1S2 regular with systolic ejection murmur, positive posterior tibial pulse bilateral, Lungs: CTA bilateral, no rhonchi, no rales , no accessory muscle use Abdominal: soft, nontender to palpation, no guarding, no appreciable organomegaly Ext: no gross muscle atrophy, no edema, no contractures Neuro: CN II-XI grossly intact, no focal neuro deficits Psych: Alert, oriented, appropriate affect Dizziness -Positive Marli-Hallpike on the left, suspect BPPV -We will need ENT evaluation to rule out in her ear dysfunction -Unable to have MRI secondary to pacemaker -Await neurology cleared for discharge, and statin secondary to carotid disease Carotid stenosis -Aspirin -Statin Moderate aortic stenosis and moderate mitral regurgitation -Outpatient cardiology follow-up Systolic cardiomyopathy, appears normal per patient ejection fraction 45-50% -Outpatient follow-up -Continue with Coreg,, Bumex, and cozaar Bilateral thigh wounds -Wound care recommendations. Diabetes mellitus type 2 - hold oral medications - SSI Atrial fibrillation -Anticoagulated with Eliquis -Telemetry -Resume Coreg Debility -walker, fall precautions The patient is placed in observation with an anticipated less than 2 midnight stay for evaluation of dizziness. CODE STATUS:DNR DVT prophylaxis: Eliquis Discussed with: patient, nursing Anticipated discharge date: in AM Anticipated discharge place: home A total of 65 minutes was spent on the care of this complex patient more than 50% of the time was spent in counseling and care coordination. Objective - Vital Signs Vital signs: Vital Signs Temp 97.3 F L 01/29/21 14:51 Pulse 70 01/29/21 14:51 Resp 18 01/29/21 14:51 BP 105/64 01/29/21 14:51 Pulse Ox 98 01/29/21 14:51 Intake & Output 01/28/21 01/29/21 01/29/21 18:59 06:59 18:59 Weight 83.915 kg 83.915 kg Other: Voiding Method Bedside Commode Bedside Commode # Voids 2 3 # Bowel Movements 1 - Labs CBC & Chem 7: 01/29/21 04:47 01/28/21 12:30 Labs: Abnormal Lab Results - Last 24 Hours (Table) 01/28/21 01/28/21 01/29/21 Range/Units 17:28 20:41 04:47 RBC 2.99 L (4.10-5.20) X 10*6/uL Hgb 9.2 L (12.0-15.0) g/dL Hct 29.0 L (37.2-46.3) % MCHC 31.7 L (32.0-37.0) g/dL Plt Count 125 L (140-440) X 10*3/uL POC Glucose (mg/dL) 212 H 225 H (75-99) mg/dL 01/29/21 01/29/21 Range/Units 07:16 11:34 RBC (4.10-5.20) X 10*6/uL Hgb (12.0-15.0) g/dL Hct (37.2-46.3) % MCHC (32.0-37.0) g/dL Plt Count (140-440) X 10*3/uL POC Glucose (mg/dL) 140 H 149 H (75-99) mg/dL
[2021-01-29 17:30] LABS: Glucose,Whole Blood 197 mg/dL (75-99)
[2021-01-29 20:04] LABS: African American GFR (CKD) 67.6 (60.0-200.0); Anion Gap 8.8 mmol/L (4.00-12.00); BUN/Creat Ratio 31.11 Ratio (12.00-20.00); Calcium 9.5 mg/dL (8.7-10.3); Carbon Dioxide 21.2 mmol/L (21.6-31.8); Non-African American GFR(CKD) 58.3 (60.0-200.0); Potassium 4.5 mmol/L (3.5-5.5)
[2021-01-29 20:20] LABS: Glucose,Whole Blood 184 mg/dL (75-99)
[2021-01-29] MEDS ORDERED: ATORVASTATIN 10 MG TAB PO SCH (21:00)
[2021-01-30] MEDS: LEVOTHYROXINE 112 MCG TAB PO SCH (05:48)
[2021-01-30 07:08] LABS: Glucose,Whole Blood 150 mg/dL (75-99)
[2021-01-30 07:56] VITALS: BP 137/73; RESP 18; TEMP 97.7
[2021-01-30] MEDS: MAGNESIUM OXIDE 400 MG TAB PO SCH (08:18)
[2021-01-30] MEDS: LOSARTAN 25 MG TAB PO SCH (08:19)
[2021-01-30] MEDS: BUMETANIDE 1 MG TAB PO SCH (08:19)
[2021-01-30] MEDS: INSULIN ASPART (NovoLOG) 100 UNIT/ML VIAL SQ SCH (08:19)
[2021-01-30] MEDS: ASCORBIC ACID 500 MG TAB PO SCH (08:19)
[2021-01-30] MEDS: allopurinoL 100 MG TAB PO SCH (08:19)
[2021-01-30] MEDS: APIXABAN 2.5 MG TABLET PO SCH (08:19)
[2021-01-30] MEDS: carvediloL 12.5 MG TAB PO SCH (08:20)
--- NOTE | 2021-01-30 10:06 | P.DS ---
Providers Date of admission: 01/28/21 12:45 Expected date of discharge: 01/30/21 Attending physician: Sonja Hoffmann MD Consults: 01/28/21 12:30 Consult Physician Urgent Consulting Provider: Nick Escobedo Consult Reason/Comments: Vertigo, vertical nystagmus Do you want consulting provider notified?: Yes [facility] [place] [facility] Course: Discharge Diagnosis: Dizziness with vertigo Carotid stenosis Moderate aortic stenosis and moderate mitral regurgitation Systolic cardiomyopathy, appears normal per patient ejection fraction 45-50% Bilateral thigh wounds Diabetes mellitus type 2 Atrial fibrillation Debility Hospital Course: Patient is an 85-year-old female with a past medical history of vertigo diagnosed 1 year ago, carotid stenosis, diabetes mellitus type 2, A. fib, and multiple other comorbid conditions who presented to [facility] secondary to dizziness. Initial vital signs are within normal limits with a blood pressure 146/66. Initial laboratory analysis demonstrated hemoglobin of 9.6, chloride 111, glucose 179, BUN 35 and creatinine 1, BNP 948. COVID testing was negative. Head CT showed no acute process, x-ray showed no acute process. Echo demonistrated ejection fraction 45-50%, moderate aortic stenosis, and moderate to severe mitral regurgitation. Carotid Doppler showed 50% plaquing bilaterally. She went to get up with therapy and her dizziness is better but she was significantly weak and they recommended rehab. She was seen and clear by neurology who Recommned ENT eval for inner ear issues. She was seen by wound care due to her bilateral thigh wounds they also identified a left axillary wound. She was too weak to return home and is going to [facility]. Patient seen and examined at bedside. No chest pain, SOB, nausea and vomiting. Dizziness is still present but better than admission. Vital signs reviewed and stable. General: non toxic, no distress, appears at stated age Derm: Wounds right thigh, warm, dry Head: atraumatic, normocephalic, symmetric Eyes: EOMI, no lid lag, anicteric sclera Mouth: no lip lesion, mucus membranes moist Cardiovascular: S1S2 reg, no murmur, positive posterior tibial pulse bilateral, Lungs: Decreased bs bilateral, no rhonchi, no rales , no accessory muscle use Abdominal: soft, nontender to palpation, no guarding, no appreciable organomegaly Ext: no gross muscle atrophy, no edema, no contractures Neuro: CN II-XI grossly intact, no focal neuro deficits Psych: Alert, oriented, appropriate affect A total of 36 minutes of time were spent preparing this complex discharge summary . Plan - Discharge Summary Discharge Rx Participant: No New Discharge Prescriptions: New Meclizine [Antivert] 12.5 mg PO TID PRN tab PRN Reason: Vertigo Acetaminophen Tab [Tylenol] 650 mg PO Q6HR PRN tab PRN Reason: Mild Pain Or Fever > 100.5 Atorvastatin [Lipitor] 10 mg PO HS tab Continue Glucosamine/Chondr Thompson A Sod [Osteo Bi-Flex Caplet] 1 tab PO DAILY Ubidecarenone [Co Q-10] 100 mg PO DAILY Ascorbic Acid [Vitamin C] 500 mg PO DAILY Vitamin E Acetate [Vitamin E] 200 unit PO DAILY glipiZIDE [Glucotrol] 5 mg PO AC-BRKFST Magnesium Oxide [Magox 400] 400 mg PO DAILY Losartan Potassium [Cozaar] 25 mg PO DAILY Apixaban [Eliquis] 2.5 mg PO BID carvediloL [Carvedilol] 12.5 mg PO BID Bumetanide [BUMEX] 1 mg PO DAILY Allopurinol [Zyloprim] 100 mg PO BID Levothyroxine Sodium [Synthroid] 112 mcg PO DAILY Nystatin 100,000 Unit/gm Oint [Mycostatin Oint] 1 applic TOPICAL BID Discharge Medication List Ascorbic Acid [Vitamin C] 500 mg PO DAILY 07/17/18 [History] Glucosamine/Chondr Thompson A Sod [Osteo Bi-Flex Caplet] 1 tab PO DAILY 07/17/18 [History] Ubidecarenone [Co Q-10] 100 mg PO DAILY 07/17/18 [History] Vitamin E Acetate [Vitamin E] 200 unit PO DAILY 07/17/18 [History] Allopurinol [Zyloprim] 100 mg PO BID 01/28/21 [History] Apixaban [Eliquis] 2.5 mg PO BID 01/28/21 [History] Bumetanide [BUMEX] 1 mg PO DAILY 01/28/21 [History] Levothyroxine Sodium [Synthroid] 112 mcg PO DAILY 01/28/21 [History] Losartan Potassium [Cozaar] 25 mg PO DAILY 01/28/21 [History] Magnesium Oxide [Magox 400] 400 mg PO DAILY 01/28/21 [History] Nystatin 100,000 Unit/gm Oint [Mycostatin Oint] 1 applic TOPICAL BID 01/28/21 [History] carvediloL [Carvedilol] 12.5 mg PO BID 01/28/21 [History] glipiZIDE [Glucotrol] 5 mg PO AC-BRKFST 01/28/21 [History] Acetaminophen Tab [Tylenol] 650 mg PO Q6HR PRN tab 01/30/21 [Rx] Atorvastatin [Lipitor] 10 mg PO HS tab 01/30/21 [Rx] Meclizine [Antivert] 12.5 mg PO TID PRN tab 01/30/21 [Rx] Follow up Appointment(s)/Referral(s): Vipul Saleh MD [Primary Care Provider] - 1-2 days Activity/Diet/Wound Care/Special Instructions: Activity: as tolerated Diet: carb consistent heart healthy Wound Care: Left axilla: Apply honey alginate, saline moistened gauze, dry gauze and secure with Tegaderm change every 48 hours Right lower extremity: Apply absorptive silver, saline moistened gauze, ABDs and secured with Tubigrip. Change every other day. Special Instructions: accucheck every morning Discharge Disposition: TRANSFER TO SNF/ECF
[2021-01-30 13:02] LABS: Folate, Serum 23.4 ng/mL
== END 2021-01-30 12:50 ==
LOC: EC 12:09 → 1SOBS 12:45 → 6NMEDSUR 16:24
PROVIDERS: ADMIT Internal Medicine; ATTEND Internal Medicine
DX: I65.29 Occlusion and stenosis of unspecified carotid artery (principal); I42.9 Cardiomyopathy, unspecified; I08.0 Rheumatic disorders of both mitral and aortic valves; Z20.822 Contact with and (suspected) exposure to COVID-19; I48.91 Unspecified atrial fibrillation; H55.09 Other forms of nystagmus; I11.0 Hypertensive heart disease with heart failure; I50.9 Heart failure, unspecified; E11.40 Type 2 diabetes mellitus with diabetic neuropathy, unspecified; G62.9 Polyneuropathy, unspecified; E11.622 Type 2 diabetes mellitus with other skin ulcer; L97.509 Non-pressure chronic ulcer of other part of unspecified foot with unspecified severity; L97.119 Non-pressure chronic ulcer of right thigh with unspecified severity; L98.492 Non-pressure chronic ulcer of skin of other sites with fat layer exposed; L97.929 Non-pressure chronic ulcer of unspecified part of left lower leg with unspecified severity; E11.621 Type 2 diabetes mellitus with foot ulcer; E78.5 Hyperlipidemia, unspecified; N28.9 Disorder of kidney and ureter, unspecified; E66.9 Obesity, unspecified; Z90.49 Acquired absence of other specified parts of digestive tract; Z90.89 Acquired absence of other organs; Z98.41 Cataract extraction status, right eye; Z98.42 Cataract extraction status, left eye; Z79.01 Long term (current) use of anticoagulants; Z79.82 Long term (current) use of aspirin; Z79.84 Long term (current) use of oral hypoglycemic drugs; Z79.890 Hormone replacement therapy; Z79.899 Other long term (current) drug therapy; Z88.1 Allergy status to other antibiotic agents; Z88.0 Allergy status to penicillin; Z87.891 Personal history of nicotine dependence; Z95.0 Presence of cardiac pacemaker; Z96.651 Presence of right artificial knee joint; Z66 Do not resuscitate; Z82.49 Family history of ischemic heart disease and other diseases of the circulatory system; Z80.0 Family history of malignant neoplasm of digestive organs
CPT/HCPCS: 96360; 96361; 99284; 36415; 93306; 97530; 97162; 97535; 97166; 80053; 80048; 82607; 82746; 85025; 85027; 87635; 93880; G0378 ×3